=== PATIENT | male | born 1935 | race Caucasian/White ===

== ENCOUNTER 2019-10-12 14:43 | Inpatient (IN) | payer OTHER ==
[~2019-10-12] VITALS: Ht 172.7 cm; Wt 89.7 kg
[~2019-10-12 14:43] MED LIST: DIGO1TAB35 PO; LEVO100T8 PO; LOSA25TA38 PO; METO-158 PO; MEX150C PO; MULT-688 PO; PRAV20TA3 PO; SPIR25TA8 PO; WARF5TAB71 PO
[2019-10-12] MEDS ORDERED: SODIUM CHLORIDE 0.9% 1,000 ML IV ONE ×2 (15:01)
[2019-10-12] MEDS ORDERED: cefTRIAXone 1GM/50ML D5W 50 ML IV ONE (15:15)
[2019-10-12 15:30] LABS: Basophils # (auto) 0 10 ^3/uL (0-0.2); Basophils % (auto) 0.2 % (0.0-2.0); Eosinophils # (auto) 0 10 ^3/uL (0-0.8); Hematocrit 38.3 % (41.0-53.0); Hemoglobin 12.7 g/dL (13.5-17.5); Lymphocytes # (auto) 0.3 10 ^3/uL (0.4-5.4); Lymphocytes % (auto) 3.6 % (10.0-50.0); Mean Corpuscular Hemoglobin 30.1 pg (28.0-32.0); Mean Corpuscular Hgb Conc. 33.3 g/dL (32.0-36.0); Mean Corpuscular Volume 90.4 fL (80.0-100.0); Monocytes # (auto) 0.5 10 ^3/uL (0-1.3); Monocytes % (auto) 6.5 % (0.0-12.0); Neutrophils # (auto) 7.5 10 ^3/uL (1.6-8.6); Neutrophils % (auto) 89.7 % (37.0-80.0); Platelet Count (auto) 210 10^3/uL (140-450); Red Blood Cells 4.24 10^6/uL (4.5-5.90); Red Cell Distribution Width 14.9 % (11.8-14.3); White Blood Cell 8.4 10^3/uL (4.4-10.8)
[2019-10-12 15:45] LABS: INR 1.98 (0.9-1.15); Partial Thromboplastin Time 30.5 sec (23.64-32.05)
[2019-10-12 15:48] LABS: Albumin 2.6 g/dL (3.4-5.0); Anion Gap 8 (5-15); BUN/Creatinine Ratio 22.3; Blood Urea Nitrogen 31 mg/dL (7-18); Calcium 7.9 mg/dL (8.5-10.1); Carbon Dioxide 22 mmol/L (21-32); Chloride 99 mmol/L (98-107); GFR African American 63 mL/min; GFR Non-African American 52 mL/min; Glucose 95 mg/dL (74-106); Potassium 4.7 mmol/L (3.5-5.1); Sodium 129 mmol/L (136-145)
[2019-10-12 16:06] LABS: Alanine Aminotransferase 20 U/L (16-61); Alkaline Phosphatase 94 U/L (45-117); Aspartate Aminotransferase 22 U/L (15-37); Bilirubin, Total 0.8 mg/dL (0.2-1.0); Total Protein 6.8 g/dL (6.4-8.2)
[2019-10-12] MEDS ORDERED: NOREPINEPHRINE 8 MG/250ML KIT 250 ML IV SCH (16:45)
[2019-10-12] MEDS ORDERED: FUROSEMIDE 20 MG/2 ML VIAL IV ONE (16:45)
[2019-10-12] MEDS ORDERED: NITROGLYCERIN 0.4 MG SL TAB SL PRN (19:45)
[2019-10-12] MEDS ORDERED: MORPHINE SULF INJ 2 MG/ML SYRINGE 1ML IV PRN (19:45)
[2019-10-12] MEDS ORDERED: LACTATED RINGER'S 1,000 ML IV ONE (20:00)
[2019-10-12] MEDS ORDERED: HYDROCORTISONE SOD SUCC 100 MG/2ML INJ VIAL IV ONE (20:00)
[2019-10-12 20:04] LABS: Urine Bacteria MANY /hpf (None Seen); Urine Blood 1+ /uL (Negative); Urine Mucus MANY (None Seen); Urine WBC 160 /hpf (0 - 3)
[2019-10-12 20:05] LABS: Urine Specific Gravity 1.013 (1.001-1.035)
--- NOTE | 2019-10-12 22:27 | NUR ---
Telemetry admit from ER ELLY GARCIA admitted to Telemetry unit after SBAR received. Patient oriented to DEANNE SMITH RN primary RN, MST unit, room 275, bed B, and unit policies regarding patient care and visiting hours. Patient now on continuous telemetry monitoring, tele box #[id number] and telemetry reading on arrival to unit is sinus rhythm in the 70s. Patient placed on bedside oxygen, weighed by bed scale and encouraged to call if they need something. All questions and concerns addressed, patient verbalized understanding. Note: Patient able to turn in bed independent, bed in lowest locked position, side rails up x2, and call light within reach.
--- NOTE | 2019-10-12 22:32 | NUR ---
RUN OF VTACH WHILE TRANSFERRING PATIENT FROM ER [facility] TO BED, RECEIVED CALL FROM DIAZO TECHNICIAN STATING PATIENT HAD A RUN OF V TACH. ASSOCIATE DIRECTOR OF BIOSTATISTICS STATED HE WAS HAVING THEM DOWNSTAIRS, AWARE, AND ASYMPTOMATIC.
--- NOTE | 2019-10-13 | NUR ---
Medication Reconcile UNABLE TO OBTAIN FULL MED REC FROM PATIENT, PATIENT IS NOT SURE WHICH MEDICATIONS HE IS ON OTHER THAN WARFARIN. PATIENT SAID HE WILL CALL CAREGIVER AND GET MEDICATION LIST FROM HER.
[2019-10-13 01:30] VITALS: BP 119/51
[2019-10-13 05:58] LABS: Basophils # (auto) 0 10 ^3/uL (0-0.2); Basophils % (auto) 0.3 % (0.0-2.0); Eosinophils # (auto) 0 10 ^3/uL (0-0.8); Hematocrit 36.8 % (41.0-53.0); Hemoglobin 12.4 g/dL (13.5-17.5); Lymphocytes # (auto) 0.3 10 ^3/uL (0.4-5.4); Lymphocytes % (auto) 3.9 % (10.0-50.0); Mean Corpuscular Hemoglobin 30.3 pg (28.0-32.0); Mean Corpuscular Hgb Conc. 33.7 g/dL (32.0-36.0); Monocytes # (auto) 0.3 10 ^3/uL (0-1.3); Monocytes % (auto) 3.5 % (0.0-12.0); Neutrophils # (auto) 7.8 10 ^3/uL (1.6-8.6); Neutrophils % (auto) 92.3 % (37.0-80.0); Nucleated Red Blood Cells % 0.1 %; Platelet Count (auto) 198 10^3/uL (140-450); Red Blood Cells 4.08 10^6/uL (4.5-5.90); Red Cell Distribution Width 15.1 % (11.8-14.3); White Blood Cell 8.5 10^3/uL (4.4-10.8)
[2019-10-13 06:00] VITALS: BP 98/35
[2019-10-13 06:17] LABS: Albumin 2.3 g/dL (3.4-5.0); Magnesium 1.8 mg/dL (1.6-2.6); Potassium 3.9 mmol/L (3.5-5.1)
[2019-10-13 06:22] LABS: BUN/Creatinine Ratio 32.3; Bilirubin, Total 0.4 mg/dL (0.2-1.0); Phosphorus 3.4 mg/dL (2.5-4.90); Total Protein 5.9 g/dL (6.4-8.2)
[2019-10-13 06:25] LABS: INR 2.22 (0.9-1.15); Partial Thromboplastin Time 34.2 sec (23.64-32.05)
[2019-10-13 09:00] VITALS: BP 103/49
[2019-10-13] MEDS ORDERED: SODIUM CHLORIDE 0.9% 500 ML IV ONE (10:45)
[2019-10-13] MEDS: D5W/LACTATED RINGERS 1,000 ML IV SCH (10:45)
[2019-10-13] MEDS ORDERED: LEVOTHYROXINE SODIUM 100 MCG TAB PO ONE (11:00)
[2019-10-13] MEDS ORDERED: MEXILETINE HYDROCHLORIDE 150 MG CAP PO ONE (11:00)
[2019-10-13] MEDS ORDERED: DIGOXIN 0.125 MG TAB PO ONE (11:00)
[2019-10-13 13:00] VITALS: BP 114/57
[2019-10-13] MEDS ORDERED: TPN PER PHARMACY 0 ML IV SCH (14:00)
[2019-10-13] MEDS ORDERED: IOTHALAMATE MEGLUMINE INJ 250ML BOT UR ONE (14:20)
[2019-10-13 16:46] VITALS: BP 125/63
[2019-10-13] MEDS: PIPERACILLIN-TAZOB 3.375GM 100 ML IV SCH (18:00)
[2019-10-13] MEDS ORDERED: CLINIMIX PER PHARMACY IV NR (20:00)
--- NOTE | 2019-10-13 20:00 | NUR ---
Opening Shift Note Assumed care of patient, awake and alert. No S/S of distress/SOB or pain. Instructed on POC and to call for assist PRN, will continue to monitor for changes Q1hr and PRN.
--- NOTE | 2019-10-13 20:30 | NUR ---
IV insertion IV access obtained, via clean sterile technique by inserting 22 gauge catheter at after attempt by Kaylie Trent. IV secured properly. No trauma to site. Patient tolerated well.
[2019-10-13] MEDS: PRAVASTATIN SODIUM 20 MG TAB PO SCH (21:21)
[2019-10-13] MEDS: MEXILETINE HYDROCHLORIDE 150 MG CAP PO SCH (21:40)
[2019-10-13 22:00] VITALS: BP 133/71
[2019-10-13] MEDS: METOPROLOL TARTRATE 50 MG TAB PO SCH (22:12)
[2019-10-14] MEDS: PIPERACILLIN-TAZOB 3.375GM 100 ML IV SCH ×5 (01:31→23:49)
--- NOTE | 2019-10-14 02:00 | NUR ---
Assumed care of patient. Patient resting with eyes closed, respirations even and unlabored, no s/s of SOB or distress. Bed in lowest locked position with two side rails raised and call wong within reach. Will continue to monitor
--- NOTE | 2019-10-14 02:00 | NUR ---
Report given to Paul Epstein, to assume care.
--- NOTE | 2019-10-14 03:20 | NUR ---
Patient had a run of V-tach with HR sustained in 150's. Patient is asymptomatic. EKG done and paged. Awaiting call back.
--- NOTE | 2019-10-14 03:35 | NUR ---
MD. Elsy Glover called back, informed Md of runs of V-Tach and current HR 120. New orders received, see EMAR for details. Will note new orders.
[2019-10-14] MEDS ORDERED: METOPROLOL TARTRATE 1MG/1ML-5ML VIAL IV PRN ×2 (03:45→04:00)
[2019-10-14] MEDS: MAGNESIUM SULFATE 1GM/100ML 100 ML IV SCH ×2 (04:00→05:27)
[2019-10-14 05:00] VITALS: BP 132/78
[2019-10-14 06:12] LABS: Basophils # (auto) 0 10 ^3/uL (0-0.2); Basophils % (auto) 0.1 % (0.0-2.0); Eosinophils # (auto) 0 10 ^3/uL (0-0.8); Hemoglobin 13.2 g/dL (13.5-17.5); Lymphocytes # (auto) 0.2 10 ^3/uL (0.4-5.4); Lymphocytes % (auto) 1.6 % (10.0-50.0); Mean Corpuscular Hemoglobin 30.2 pg (28.0-32.0); Mean Corpuscular Volume 88.8 fL (80.0-100.0); Monocytes # (auto) 0.5 10 ^3/uL (0-1.3); Monocytes % (auto) 3.9 % (0.0-12.0); Neutrophils # (auto) 11.2 10 ^3/uL (1.6-8.6); Neutrophils % (auto) 94.4 % (37.0-80.0); Platelet Count (auto) 218 10^3/uL (140-450); Red Blood Cells 4.39 10^6/uL (4.5-5.90); Red Cell Distribution Width 14.8 % (11.8-14.3); White Blood Cell 11.8 10^3/uL (4.4-10.8)
[2019-10-14 06:28] LABS: INR 2.84 (0.9-1.15); Partial Thromboplastin Time 36.2 sec (23.64-32.05)
[2019-10-14 06:35] LABS: Potassium 3.7 mmol/L (3.5-5.1)
[2019-10-14 06:37] LABS: Pre Albumin 9.4 mg/dL (20.0-40.0)
[2019-10-14] MEDS: LEVOTHYROXINE SODIUM 100 MCG TAB PO SCH (06:39)
[2019-10-14 06:45] LABS: Albumin 2.3 g/dL (3.4-5.0); BUN/Creatinine Ratio 33.3; Bilirubin, Total 0.5 mg/dL (0.2-1.0); Total Protein 6.1 g/dL (6.4-8.2)
--- NOTE | 2019-10-14 06:45 | NUR ---
Patient states he is "seeing things" and flashes of light sometimes. Will endorse to dayschristophe RN.
--- NOTE | 2019-10-14 08:30 | NUR ---
INTERROGATION MEMBER AT BEDSIDE.
[2019-10-14] MEDS ORDERED: PHYTONADIONE (VIT K)10 MG/ML 1ML VIAL SUBCUT ONE (08:45)
--- NOTE | 2019-10-14 08:51 | NUR ---
[facility] MEYER CARDIOLOGY REGARDING PATIENTS RUNS OF VTACH AND COMPLAINTS OF VISUAL DISTURBANCES.
[2019-10-14 09:00] VITALS: BP 105/45
[2019-10-14] MEDS: MEXILETINE HYDROCHLORIDE 150 MG CAP PO SCH ×2 (09:37→22:25)
[2019-10-14] MEDS: METOPROLOL TARTRATE 50 MG TAB PO SCH ×2 (09:38→22:00)
[2019-10-14] MEDS ORDERED: DIGOXIN 0.125 MG TAB PO SCH (10:00)
[2019-10-14] MEDS ORDERED: phytonadione 10 MG in SODIUM CHL 0.9% 50 ML IV ONE (10:15)
[2019-10-14] MEDS: D5W/LACTATED RINGERS 1,000 ML IV SCH ×2 (10:37→23:28)
[2019-10-14 13:00] VITALS: BP 90/44
[2019-10-14] MEDS ORDERED: SODIUM PHOSPHATES 24 MEQ in SODIUM CHL 0.9% 100 ML IV ONE (14:00)
--- NOTE | 2019-10-14 14:08 | NUR ---
Nutrition Assessment Notes (new PN) please see attached link for complete assessment Est. Energy Needs BW 76 [id number] kcal (23-25 kcal/kg BW), Est. Protein Needs: 76-91 gms/day (1.0-1.2 gms/kg BW).Will continue to monitor and reassess prn. Addendum: 10/14/19 at [address] Amended: Links added.
--- NOTE | 2019-10-14 14:42 | NUR ---
KWASI ANNE REGARDING PATIENT REPORTS OF 'BLACK AND WHITE PICTURES. AWAITING CALL BACK.
--- NOTE | 2019-10-14 14:47 | NUR ---
SPOKE WITH DAYANA. RECEIVED ORDER FOR BRAIN MRI WITHOUT CONTRAST. IF AICD IS NOT COMPATIBLE PLEASE ORDER CT OF HEAD WITHOUT CONTRAST.
--- NOTE | 2019-10-14 16:16 | NUR ---
PATIENT REFUSING CT OF THE HEAD. STATES HE IS NO LONGER HALLUCINATING.
[2019-10-14 16:58] VITALS: BP 93/46
[2019-10-14] MEDS: AMIODARONE HCL 200 MG TAB PO SCH ×2 (17:00→22:25)
[2019-10-14] MEDS: ACCU-CHEK COMFORT CURVE STRIP VI SCH (18:00)
[2019-10-14] MEDS ORDERED: DEXTROSE (50%) 50ML SYRG IV SCH (18:00)
[2019-10-14] MEDS: InsuLIN REG 1unit/0.01ml Soln (100units/ml) SC SCH (18:00)
--- NOTE | 2019-10-14 18:02 | NUR ---
PAGED DIRECTOR OPERATING ROOM HOSPITALIST REGARDING PATIENTS BLOOD PRESSURE OF 88/40MMG. HEART RATE OF 60BPM. PATIENT STATES "I FEEL FINE, IM JUST TIRED, BUT I FELT LIKE THIS SINCE MORNING TIME."
--- NOTE | 2019-10-14 18:20 | NUR ---
SPOKE TO Thaddeus RAMIREZ. PER Thaddeus HE DOES NOT COVER FOR Thaddeus ANNE PATIENTS. PAGED Thaddeus ANNE. AWAITING CALL BACK.
--- NOTE | 2019-10-14 18:39 | NUR ---
SPOKE TO Thaddeus ANNE REGARDING PATIENTS BLOOD PRESSURE. INFORMED TO JUST CONTINUE FLUIDS. WILL FOLLOW THROUGH.
--- NOTE | 2019-10-14 19:44 | NUR ---
ENDORSED CARE TO RONNY NIETO. INFORMED OF PATIENT HOME NEBULIZER THAT WERE JUST BROUGHT IN.
[2019-10-14] MEDS ORDERED: PPN PER PHARMACY IV NR ×11 (20:00)
[2019-10-14] MEDS ORDERED: ALBU2TAB4 PO (21:43)
[2019-10-14] MEDS ORDERED: ALBU108A14 IN (21:43)
[2019-10-14] MEDS ORDERED: IPRAAER6 IN (21:43)
[2019-10-14 22:00] VITALS: BP 90/42
--- NOTE | 2019-10-14 22:00 | NUR ---
bg hospitalist to notify of patient requesting home breathing treatments, and inhalers. awaiting call back from hospitalist. Addendum: 10/14/19 at 2208 by Job Carlos RN bg ellis Addendum: 10/15/19 at 0550 by Job Carlos RN CLARIFIED BP MEDS, AND MD ANNE SAID ITS OK TO GIVE MEDICATIONS AND ORDERED HOME MEDICATIONS. READ BACK AND CONFIRMED.
[2019-10-14] MEDS: PRAVASTATIN SODIUM 20 MG TAB PO SCH (22:46)
[2019-10-14 23:07] VITALS: BP 90/42
[2019-10-15] MEDS: ACCU-CHEK COMFORT CURVE STRIP VI SCH ×5 (00:01→23:31)
--- NOTE | 2019-10-15 00:17 | NUR ---
PAGED DR ANNE TO NOTIFY OF PATIENT HAVING RUN OF VTAC, EKG RESULTS AND TELE STRIP RESULTS. AWAITING CALL BACK. PATIENT IS ASYMPTOMATIC.
--- NOTE | 2019-10-15 00:24 | NUR ---
2ND PAGED DR ANNE TO NOTIFY OF PATIENT HAVING RUN OF VTAC, EKG RESULTS AND TELE STRIP RESULTS. AWAITING CALL BACK. PATIENT IS ASYMPTOMATIC.
[2019-10-15] MEDS: ALBUTEROL SULF 2.5 MG/0.5ML(0.5%) NEB SOLN NEB PRN ×4 (00:25→23:03)
--- NOTE | 2019-10-15 00:43 | NUR ---
3RD PAGED DR ANNE TO NOTIFY OF PATIENT HAVING RUN OF VTAC, EKG RESULTS AND TELE STRIP RESULTS. AWAITING CALL BACK. PATIENT IS ASYMPTOMATIC.
--- NOTE | 2019-10-15 01:37 | NUR ---
4TH PAGED TO NOTIFY OF PATIENT HAVING ANOTHER RUN OF VTAC 8 BEATS, PATIENT ASYMPTOMATIC, PREVIOUS VTAC, VITALS, EKG, PRINTOUT OF TELE. AWAITING CALL BACK. Addendum: 10/15/19 at 0143 by Job Carlos RN TELE HOSTEL PARENT PAOLA, NOTIFIED ME PATIENT DID NOT HAVE TRUE VTAC AND IT WAS A BUNDLE SWITCH. AWAITING CALL BACK.
--- NOTE | 2019-10-15 02:45 | NUR ---
SPOKE TO MD ANNE, AND NOTIFIED HIM OF LOW BP 88/49. VTAC, VITALS, EKG. MD ANNE PROVIDED NEW ORDER OF: BOLUS 250 ONE TIME DOSE NOW. READ BACK AND CONFIRMED. NO NEW ORDER GIVEN FOR VTAC. Addendum: 10/15/19 at 0254 by Job Carlos RN MD ANNE PROVIDED ORDER FOR MAG LEVEL LAB DRAW AND BMP LAB DRAW. ORDERS AREADY IN. Addendum: 10/15/19 at 0257 by Job Carlos RN AWARE OF 18 BEATS OF VTAC AND EPISODE OF VTAC.
[2019-10-15] MEDS ORDERED: SODIUM CHLORIDE 0.9% 250 ML IV ONE (03:00)
[2019-10-15] MEDS ORDERED: SODIUM CHLORIDE 0.9% 1,000 ML IV ONE (03:00)
[2019-10-15 05:00] VITALS: BP 97/63
[2019-10-15] MEDS: InsuLIN REG 1unit/0.01ml Soln (100units/ml) SC SCH ×6 (05:37→23:34)
--- NOTE | 2019-10-15 05:49 | NUR ---
CLARIFIED BP MEDS, AND MD ANNE SAID ITS OK TO GIVE MEDICATIONS AND ORDERED HOME MEDICATIONS. READ BACK AND CONFIRMED.
--- NOTE | 2019-10-15 05:50 | NUR ---
SPOKE TO MD LR TO CLARIFY IF ITS OK TO GIVE MEDICATIONS SINCE PT IS NPO. MD LR PROVIDED NEW ORDER OF : NPO EXCEPT MEDICATIONS. READ BACK AND CONFIRMED.
[2019-10-15] MEDS: PIPERACILLIN-TAZOB 3.375GM 100 ML IV SCH ×4 (05:53→23:31)
[2019-10-15] MEDS ORDERED: COMBIVENT RESPIMAT PO SCH ×2 (06:00→12:00)
[2019-10-15] MEDS: LEVOTHYROXINE SODIUM 100 MCG TAB PO SCH (06:04)
[2019-10-15 06:26] LABS: INR 1.13 (0.9-1.15); Partial Thromboplastin Time 30.5 sec (23.64-32.05); Potassium 3.2 mmol/L (3.5-5.1)
[2019-10-15 06:32] LABS: Albumin 1.8 g/dL (3.4-5.0); BUN/Creatinine Ratio 31.4; Bilirubin, Total 0.5 mg/dL (0.2-1.0); Calcium 7.6 mg/dL (8.5-10.1); Magnesium 2.2 mg/dL (1.6-2.6); Phosphorus 2.2 mg/dL (2.5-4.90); Total Protein 5.4 g/dL (6.4-8.2)
--- NOTE | 2019-10-15 07:30 | NUR ---
Opening Shift Note Assumed care of patient, awake and alert. No S/S of distress/SOB or pain. Bed in lowest and locked position with side rails up x2 and call light in reach. Instructed on POC and to call for assist PRN, will continue to monitor for changes Q1hr and PRN.
[2019-10-15 09:00] VITALS: BP 93/45
[2019-10-15] MEDS: METOPROLOL TARTRATE 50 MG TAB PO SCH ×2 (10:00→21:35)
--- NOTE | 2019-10-15 12:00 | NUR ---
RN UPDATED DR. MEYER ON THE PATIENTS HEART RHYTHM. MD AWARE AND NO NEW ORDERS RECEIVED AT THIS TIME.
--- NOTE | 2019-10-15 12:50 | NUR ---
SPOKE TO DR. MEYER NEW ORDERS RECEIVED, READ BACK AND VERIFIED. SEE EMR FOR ORDERS.
[2019-10-15 13:00] VITALS: BP 97/46
[2019-10-15] MEDS ORDERED: POTASSIUM PHOSPHATE 22 MEQ in SODIUM CHL 0.9% 100 ML IV ONE (13:00)
[2019-10-15] MEDS: D5W/LACTATED RINGERS 1,000 ML IV SCH ×2 (13:15→15:51)
--- NOTE | 2019-10-15 13:20 | NUR ---
SPOKE TO DR. ANNE. RN UPDATED DR. ANNE ON THE PATIENTS HEART RHYTHMS AND BLOOD PRESSURE. MD AWARE. ORDERS RECEIVED READ BACK AND VERIFIED. SEE EMR FOR ORDERS.
[2019-10-15] MEDS: AMIODARONE HCL 200 MG TAB PO SCH ×2 (13:27→21:34)
[2019-10-15] MEDS ORDERED: COMBIVENT RESPIMAT PO PRN (14:00)
--- NOTE | 2019-10-15 15:11 | NUR ---
PICC line placement Patient educated on need for PICC line placement. All risks and benefits explained and all questions and concerns addressed prior to procedure. Noted past medical history and allergies with no contraindications. INR and Plt counts within acceptable range. 5 fr PICC line inserted via right basilic vein using [employer] US and Tip Location System. Sterile technique with maximum barrier precautions utilized. Blood return obtained from each of the 2 lumens and each flushed easily with NS using proper technique. PICC secured with Stat-lock; biodisc and occlusive dressing applied. Stat portable chest x-ray obtained for PICC tip placement. *Baseline Arm Circumference 29 cm. Internal length 42 cm. External length 0 cm. PICC lot #[id number]
[2019-10-15] MEDS ORDERED: LIDOCAINE 1% (LOCAL ANESTH.) PF 5ml SDV ID ONE (15:15)
--- NOTE | 2019-10-15 15:17 | NUR ---
Okay to use PICC line Xray completed and reviewed. Okay to use PICC line. Primary RN notified.
[2019-10-15] MEDS: COMBIVENT RESPIMAT PO PRN (15:52)
--- NOTE | 2019-10-15 16:00 | NUR ---
IV removal RIGHT HAND IV DC'd with clean sterile technique, catheter fully intact. Pressure dressing applied to site. Patient tolerated well.
[2019-10-15 17:00] VITALS: BP 94/51
--- NOTE | 2019-10-15 18:00 | NUR ---
PAGED DR. ANNE REGARDING PATIENT NAUSEA. AWAITING CALL BACK.
[2019-10-15] MEDS ORDERED: PPN PER PHARMACY IV NR ×11 (20:00)
--- NOTE | 2019-10-15 21:13 | NUR ---
HEART RHYTHM MEDART OPERATOR CALLED, REPORTED THAT PATIENT HAD RUN OF VTACH. UPON ENTERING ROOM, PATIENT IS IN NO S/S OF DISTRESS AND DENIES ABNORMAL SYMPTOMS. MD IS AWARE OF SUCH OCCURRENCE. SEE TELE STRIP IN CHART. WILL CONTINUE TO MONITOR.
[2019-10-15] MEDS: SODIUM CHLOR 0.9% PF (SALINE LOCK) 10ML VIAL/SYR IV SCH (21:30)
[2019-10-15] MEDS: PRAVASTATIN SODIUM 20 MG TAB PO SCH (21:34)
[2019-10-15 22:00] VITALS: BP 104/54
--- NOTE | 2019-10-16 00:10 | NUR ---
K+ K+ level from laboratory has resulted at this time. Per MD communication order (see order), will give PO K+. Will carry out order. Will continue to monitor.
[2019-10-16] MEDS ORDERED: POTASSIUM CHL 20 Meq TABLET PO ONE ×2 (00:30→18:00)
[2019-10-16] MEDS: COMBIVENT RESPIMAT PO PRN ×2 (03:57→22:39)
--- NOTE | 2019-10-16 03:58 | NUR ---
PAGED FOR MED NEB TX. PT STATED HE WANTED TO USE MDI THAT RN HAS ACCESS TO NOT NEBULIZED TX. CALLED RN, SHE CLAIMS "PT NEEDED NEBULIZER TX BEFORE MDI, EXPLAINED TO RN PT CAN NOT HAVE BOTH, MDI AND NEBULIZED TX AND PT REQUESTED MDI. RN GOING TO ADMINISTER MDI.
--- NOTE | 2019-10-16 04:00 | NUR ---
RE: PRN SOB SEE PREVIOUS RT NOTE. THIS RN DID NOT CLAIM SUCH STATEMENT. THIS RN IS AWARE OF PROPER MEDICATION ADMINISTRATION AND DID NOT INFER THAT PATIENT WOULD RECEIVE DUPLICATE TREATMENT. COMMUNICATION CLARIFIED, RT VERBALIZED UNDERSTANDING. PATIENT REQUESTS HIS POM INHALER. PER MD ORDER, WILL ADMINISTER MEDICATION (SEE EMAR FOR DOCUMENTATION). WILL CONTINUE TO MONITOR.
[2019-10-16 05:00] VITALS: BP 106/52
[2019-10-16] MEDS: PIPERACILLIN-TAZOB 3.375GM 100 ML IV SCH ×4 (05:29→23:46)
[2019-10-16] MEDS: ACCU-CHEK COMFORT CURVE STRIP VI SCH ×4 (05:29→23:46)
[2019-10-16] MEDS: InsuLIN REG 1unit/0.01ml Soln (100units/ml) SC SCH ×4 (05:30→23:46)
[2019-10-16 05:41] LABS: Basophils # (auto) 0 10 ^3/uL (0-0.2); Basophils % (auto) 0.1 % (0.0-2.0); Eosinophils # (auto) 0 10 ^3/uL (0-0.8); Eosinophils % (auto) 0.2 % (0.0-7.0); Hematocrit 31.7 % (41.0-53.0); Hemoglobin 10.9 g/dL (13.5-17.5); Lymphocytes # (auto) 0.3 10 ^3/uL (0.4-5.4); Lymphocytes % (auto) 3.7 % (10.0-50.0); Mean Corpuscular Hemoglobin 30.5 pg (28.0-32.0); Mean Corpuscular Hgb Conc. 34.5 g/dL (32.0-36.0); Mean Corpuscular Volume 88.4 fL (80.0-100.0); Monocytes # (auto) 0.8 10 ^3/uL (0-1.3); Monocytes % (auto) 10.7 % (0.0-12.0); Neutrophils # (auto) 6.4 10 ^3/uL (1.6-8.6); Neutrophils % (auto) 85.3 % (37.0-80.0); Platelet Count (auto) 205 10^3/uL (140-450); Red Blood Cells 3.59 10^6/uL (4.5-5.90); Red Cell Distribution Width 14.6 % (11.8-14.3); White Blood Cell 7.5 10^3/uL (4.4-10.8)
[2019-10-16 06:10] LABS: Albumin 1.6 g/dL (3.4-5.0); Calcium 7.3 mg/dL (8.5-10.1); Magnesium 1.9 mg/dL (1.6-2.6); Potassium 3.2 mmol/L (3.5-5.1)
[2019-10-16] MEDS: LEVOTHYROXINE SODIUM 100 MCG TAB PO SCH (06:10)
[2019-10-16 06:15] LABS: BUN/Creatinine Ratio 32.2; Bilirubin, Total 0.4 mg/dL (0.2-1.0); Total Protein 5.4 g/dL (6.4-8.2)
--- NOTE | 2019-10-16 06:20 | NUR ---
RE: COUGH AND HOME MED PATIENT OFFERED MEDICATION FOR HIS COUGH. PATIENT STATES HE DOES NOT WANT ANYTHING. PATIENT STATES HE HAS COPD AND HEART FAILURE AND TAKES A CERTAIN HELPFUL MEDICATION AT HOME FOR HIS COUGH WHICH IS NOT RECOGNIZED IN MED REC. INFORMED PATIENT TO NOTIFY FAMILY MEMBER TO NOTIFY OUR STAFF WHEN INFORMATION IS KNOWN. PATIENT AND DAUGHTER VERBALIZED UNDERSTANDING. WILL NOTIFY DAY SHIFT RN.
--- NOTE | 2019-10-16 07:35 | NUR ---
Opening Shift Note: Assumed care of patient, awake and alert. No S/S of distress/SOB or pain. Bed in lowest locked position, side rails up x 2, call light within reach. Patient instructed on POC and to call for assist PRN, will continue to monitor for changes Q1hr and PRN.
[2019-10-16 09:00] VITALS: BP 115/69
[2019-10-16] MEDS: D5W/LACTATED RINGERS 1,000 ML IV SCH (09:45)
[2019-10-16] MEDS ORDERED: POTASSIUM PHOSPHATE 22 MEQ in SODIUM CHL 0.9% 100 ML IV ONE (09:45)
[2019-10-16] MEDS: SODIUM CHLOR 0.9% PF (SALINE LOCK) 10ML VIAL/SYR IV SCH ×2 (10:28→21:40)
[2019-10-16] MEDS: METOPROLOL TARTRATE 50 MG TAB PO SCH ×2 (10:29→21:42)
[2019-10-16] MEDS: AMIODARONE HCL 200 MG TAB PO SCH ×2 (10:29→21:42)
--- NOTE | 2019-10-16 10:52 | NUR ---
Respiratory note: PT ASSESSED FOR PRN MED NEB TX, NO TX DESIRED NOR INDICATED AT THIS TIME. PT IS SLEEPING AND STATES HE HASN'T SLEPT IN DAYS. PT AND RN AWARE TO HAVE RT PAGED IF NEEDED. HR 60 RR 16 SPO2 98% ON 2L N/C BREATH SOUNDS ARE DIMINISHED WITH FEW SCATTERED EXPIATORY CRACKLES.
--- NOTE | 2019-10-16 11:27 | NUR ---
1200 antibiotic held. No available IV line, as both forearm IVs infiltrated, and picc line is currently running PPN and potassium Patient refused new IV start at this time. Patient educated on need for new line, patient continued to refused.
--- NOTE | 2019-10-16 11:45 | NUR ---
Both right forearm IVs DC'd due to infiltration. Catheter intact. pressure dressing applied.
[2019-10-16 13:00] VITALS: BP 122/58
--- NOTE | 2019-10-16 16:00 | NUR ---
PT declined PT and would like to have evaluation done tomorrow. Will attempt again.
[2019-10-16 17:00] VITALS: BP 106/58
[2019-10-16] MEDS: ALBUTEROL SULF 2.5 MG/0.5ML(0.5%) NEB SOLN NEB PRN (18:16)
--- NOTE | 2019-10-16 18:49 | NUR ---
CLOSING NOTE: Patient resting in bed. No S/S of distress at this time. Care endorsed to NOC RN.
[2019-10-16] MEDS: TPN PER PHARMACY IV NR ×10 (19:40)
--- NOTE | 2019-10-16 21:40 | NUR ---
RE: COUGH; PAGED DR. ANNE PATIENT C/O COUGH AND WOULD LIKE TO CONTINUE HIS HOME MEDICATION BENZONATATE 100MG PO BID. PAGED DR. ANNE. AWAITING CALL BACK. WILL CONTINUE TO MONITOR.
[2019-10-16] MEDS: PRAVASTATIN SODIUM 20 MG TAB PO SCH (21:43)
[2019-10-16] MEDS ORDERED: BENZ100C97 PO (21:53)
[2019-10-16 22:51] VITALS: BP 117/51
[2019-10-17] MEDS ORDERED: IBUPROFEN 600 MG TAB PO PRN (02:30)
[2019-10-17] MEDS: ALBUTEROL SULF 2.5 MG/0.5ML(0.5%) NEB SOLN NEB PRN ×3 (03:45→19:00)
[2019-10-17 05:00] VITALS: BP 121/62
--- NOTE | 2019-10-17 05:10 | NUR ---
BLOOD SENT TO LAB
[2019-10-17] MEDS: PIPERACILLIN-TAZOB 3.375GM 100 ML IV SCH ×3 (05:12→18:44)
[2019-10-17] MEDS: InsuLIN REG 1unit/0.01ml Soln (100units/ml) SC SCH ×3 (05:12→18:00)
[2019-10-17] MEDS: ACCU-CHEK COMFORT CURVE STRIP VI SCH ×3 (05:12→18:00)
[2019-10-17] MEDS: D5W/LACTATED RINGERS 1,000 ML IV SCH (05:13)
[2019-10-17 05:41] LABS: Albumin 1.7 g/dL (3.4-5.0); Calcium 7.3 mg/dL (8.5-10.1); Magnesium 1.9 mg/dL (1.6-2.6); Potassium 3.6 mmol/L (3.5-5.1)
[2019-10-17 05:44] LABS: BUN/Creatinine Ratio 35.9; Bilirubin, Total 0.3 mg/dL (0.2-1.0); Phosphorus 2.6 mg/dL (2.5-4.90); Total Protein 5.4 g/dL (6.4-8.2)
[2019-10-17] MEDS: LEVOTHYROXINE SODIUM 100 MCG TAB PO SCH (06:29)
--- NOTE | 2019-10-17 06:30 | NUR ---
SOILED PATIENT HAD EPISODE OF BOWEL INCONTINENCE. PATIENT DONN CARE PERFORMED, TOLERATED WELL. PARTIAL LINEN CHANGE PERFORMED. BARRIER CREAM APPLIED. WILL CONTINUE TO MONITOR.
--- NOTE | 2019-10-17 07:37 | NUR ---
RT note: PT awake and alert. No signs of sob/resp.distress noted at this time. PT on 2 l/m NC with sats=94%, HR74, RR=18. PT waiting to go to GI lab. No TX indicated at this time.
[2019-10-17 09:13] VITALS: BP 109/54
--- NOTE | 2019-10-17 09:57 | NUR ---
Nutrition Followup Notes Pt wt is 86.0 kg Pt is with a Clear Liquid diet, appetite is fair aeb 50% PO intake per RN doc. Pt is also with TPN running @ 65 ml/hr, providing 1470 kcals, 80g protein and 1150 NPCs. Pt with adequate energy intake from PN support as it meets 77% to 99% of est caloric needs. Protein intake from PN support is adequate as it meets 88% to 105% of est protein needs. Will continue to monitor PO status, skin status, pertinent labs and weight trends. Will f/u in 2-3 days. Est. Energy Needs BW 76 [id number] kcal (23-25 kcal/kg BW), Est. Protein Needs: 76-91 gms/day (1.0-1.2 gms/kg BW). Will continue to monitor and reassess prn. LABS: Gluc 112 H, Ca 7.3 L, Alb 1.7 L, BUN 28 H GI: Pt is with diarrhea and pain per RN doc. BS: 17 mod risk Refer to wound assessment report for full details. PES: Altered nutrition related lab values r.t current chronic medical condition aeb hypocalcemia, mod hypoalb Increased nutrient needs r.t current medical condition aeb pt`s NPO with PN support Comments 1) advance PN support to meet > 75% of needs 2) advance diet as medically feiasble 3) continue current plan of care
[2019-10-17] MEDS ORDERED: GOLYTELY 4L KIT PO ONE (10:00)
[2019-10-17] MEDS: AMIODARONE HCL 200 MG TAB PO SCH ×2 (10:09→22:07)
[2019-10-17] MEDS: SODIUM CHLOR 0.9% PF (SALINE LOCK) 10ML VIAL/SYR IV SCH ×2 (10:09→22:07)
[2019-10-17] MEDS: METOPROLOL TARTRATE 50 MG TAB PO SCH ×2 (10:09→22:07)
[2019-10-17] MEDS: COMBIVENT RESPIMAT PO PRN (10:28)
--- NOTE | 2019-10-17 11:00 | NUR ---
PT WAS GIVEN A LAXATIVE AND DOES NOT WANT TO ATTEMPT P.T. AT THIS TIME.
[2019-10-17 13:32] VITALS: BP 122/55
[2019-10-17] MEDS: BENZONATATE 100 MG PO PRN ×2 (13:56→22:07)
[2019-10-17] MEDS ORDERED: POTASSIUM CHL 20MEQ/100ML 100 ML IV ONE (16:30)
[2019-10-17 17:00] VITALS: BP 110/57
--- NOTE | 2019-10-17 18:50 | NUR ---
Respiratory paged for treatment.
--- NOTE | 2019-10-17 18:51 | NUR ---
CLOSING NOTE: Patient in bed. Paged respiratory for treatment. Care endorsed to NOC RN.
[2019-10-17 19:55] VITALS: BP 110/57
[2019-10-17] MEDS: TPN PER PHARMACY IV NR ×10 (19:57)
[2019-10-17] MEDS ORDERED: TPN PER PHARMACY IV NR ×10 (20:00)
--- NOTE | 2019-10-17 21:08 | NUR ---
Pt had large liquid green, brown BM. pericare performed, linens and gown changed. pt tolerated well. call light in reach.
[2019-10-17 21:11] VITALS: BP 110/57
[2019-10-17] MEDS: PRAVASTATIN SODIUM 20 MG TAB PO SCH (22:07)
[2019-10-18] MEDS: ACCU-CHEK COMFORT CURVE STRIP VI SCH ×4 (00:30→18:14)
[2019-10-18] MEDS: InsuLIN REG 1unit/0.01ml Soln (100units/ml) SC SCH ×4 (00:30→18:00)
[2019-10-18] MEDS: PIPERACILLIN-TAZOB 3.375GM 100 ML IV SCH ×4 (01:21→18:13)
[2019-10-18] MEDS: D5W/LACTATED RINGERS 1,000 ML IV SCH ×2 (02:21→22:33)
--- NOTE | 2019-10-18 02:58 | NUR ---
pt had large liquid green BM. jose care performed. pt tolerated well. call light in reach.
[2019-10-18] MEDS: COMBIVENT RESPIMAT PO PRN (04:08)
[2019-10-18] MEDS: ALBUTEROL SULF 2.5 MG/0.5ML(0.5%) NEB SOLN NEB PRN ×2 (04:13→15:39)
[2019-10-18 05:30] VITALS: BP 136/61
--- NOTE | 2019-10-18 06:59 | NUR ---
pt had large liquid green BM. jose care performed. pt tolerated well. call light in reach.
[2019-10-18] MEDS: LEVOTHYROXINE SODIUM 100 MCG TAB PO SCH (07:00)
--- NOTE | 2019-10-18 07:10 | NUR ---
Opening Shift Note: Assumed care of patient, awake and alert. No S/S of distress/SOB or pain. Bed in lowest locked position, side rails up x 2, call light within reach. Patient educated on NPO status. Patient instructed on POC and to call for assist PRN, will continue to monitor for changes Q1hr and PRN.
[2019-10-18] MEDS: BENZONATATE 100 MG PO PRN (08:53)
[2019-10-18 09:00] VITALS: BP 121/83
[2019-10-18 09:23] LABS: Albumin 1.7 g/dL (3.4-5.0); BUN/Creatinine Ratio 35.6; Bilirubin, Total 0.3 mg/dL (0.2-1.0); Calcium 7.5 mg/dL (8.5-10.1); Magnesium 2.1 mg/dL (1.6-2.6); Phosphorus 2.8 mg/dL (2.5-4.90); Total Protein 5.8 g/dL (6.4-8.2)
--- NOTE | 2019-10-18 09:59 | NUR ---
Paged Dr. Ramos regarding unfinished GoLytely. Awaiting call back.
[2019-10-18] MEDS: AMIODARONE HCL 200 MG TAB PO SCH ×2 (10:00→22:27)
[2019-10-18] MEDS: METOPROLOL TARTRATE 50 MG TAB PO SCH ×2 (10:00→22:28)
[2019-10-18] MEDS: SODIUM CHLOR 0.9% PF (SALINE LOCK) 10ML VIAL/SYR IV SCH ×2 (10:05→22:32)
--- NOTE | 2019-10-18 10:35 | NUR ---
Spoke with Dr. Ramos. New orders received. Read back and verified.
[2019-10-18] MEDS ORDERED: FLEET ENEMA(ADULT) 135 ML PR ONE (11:00)
--- NOTE | 2019-10-18 11:37 | NUR ---
Tap water enema given. Patient tolerated well. Will continue to monitor.
[2019-10-18 13:00] VITALS: BP 120/73
--- NOTE | 2019-10-18 13:45 | NUR ---
CONSENTS SIGNED AND PLACED IN THE CHART. ORDERED, SECOND TAP WATER ENEMA GIVEN. PATIENT TOLERATED WELL. WILL CONTINUE TO MONITOR.
--- NOTE | 2019-10-18 15:35 | NUR ---
SPOKE WITH FAMILY. PER DAUGHTER 'CAN HE GET SOME COMPRESSION SOCKS OR MEDICATION TO STOP BLOOD CLOTS." THIS NURSE PAGED DR. JJ. AWAITING CALL BACK.
--- NOTE | 2019-10-18 15:58 | NUR ---
Attempted PT eval. Pt refused stating he is "too weak." Pt was educated on purpose of physical therapy and importance of OOB activities. Pt verbalized understanding but continued to refused. Will make one more attempt tomorrow. If pt refuses PT eval tomorrow, he will be discharged from caseload for non-compliance.
[2019-10-18] MEDS ORDERED: fentaNYL CITRATE 100 MCG/2 ML VL ONE (16:39)
[2019-10-18] MEDS ORDERED: ONDANSETRON HCL 4 MG/2 ML VIAL ONE (16:39)
[2019-10-18] MEDS ORDERED: MIDAZOLAM HCL 1MG/1ML-2 ML VIAL ONE (16:39)
[2019-10-18] MEDS ORDERED: KETAMINE HCL 10 ML ONE (16:39)
[2019-10-18] MEDS ORDERED: SODIUM CHLORIDE LOCK 10 ML ONE (16:39)
[2019-10-18 17:00] VITALS: BP 126/76
--- NOTE | 2019-10-18 18:57 | NUR ---
CLOSING NOTE: Patient resting in bed. No S/S of distress at this time. Care endorsed to NOC RN.
--- NOTE | 2019-10-18 19:15 | NUR ---
Opening Shift Note: Assumed care of patient. Pt is awake, alert, and oriented X 4. No S/S of respiratory distress noted. No pain, nausea, or vomiting reported. Bed in lowest locked position, side rails up x 2, call light within reach. Salgado is patent and below the bladder level. Patient educated on NPO status. Patient instructed on POC and to call for assistance PRN. Will continue to monitor for changes Q1hr and PRN.
[2019-10-18 20:00] VITALS: BP 120/63
[2019-10-18] MEDS ORDERED: TPN PER PHARMACY IV NR ×10 (20:00)
[2019-10-18 22:00] VITALS: BP 120/63
[2019-10-18] MEDS: PRAVASTATIN SODIUM 20 MG TAB PO SCH (22:26)
[2019-10-19] MEDS: ACCU-CHEK COMFORT CURVE STRIP VI SCH ×4 (00:17→18:10)
[2019-10-19] MEDS: PIPERACILLIN-TAZOB 3.375GM 100 ML IV SCH ×4 (00:25→17:59)
[2019-10-19] MEDS: InsuLIN REG 1unit/0.01ml Soln (100units/ml) SC SCH ×4 (00:26→18:00)
[2019-10-19] MEDS: ALBUTEROL SULF 2.5 MG/0.5ML(0.5%) NEB SOLN NEB PRN (04:01)
[2019-10-19 05:00] VITALS: BP 93/52
[2019-10-19] MEDS: LEVOTHYROXINE SODIUM 100 MCG TAB PO SCH (06:40)
[2019-10-19] MEDS: BENZONATATE 100 MG PO PRN ×2 (06:40→22:47)
[2019-10-19 07:03] LABS: Potassium 3.8 mmol/L (3.5-5.1)
[2019-10-19 07:27] LABS: Albumin 1.5 g/dL (3.4-5.0); BUN/Creatinine Ratio 33.3; Bilirubin, Total 0.3 mg/dL (0.2-1.0); Calcium 7.4 mg/dL (8.5-10.1); Magnesium 2.2 mg/dL (1.6-2.6); Phosphorus 3.1 mg/dL (2.5-4.90); Total Protein 5.6 g/dL (6.4-8.2)
--- NOTE | 2019-10-19 08:31 | NUR ---
ASSESSMENT MARINA SALES AND SERVICE SUPERVISOR SPOKE WITH PT'S DAUGHTER PAWAN [phone] TO OBTAIN COLLATERAL INFORMATION FOR INITIAL ASSESSMENT. PT IS A 84 YR OLD MALE ADMITTED FOR ACUTE KIDNEY FAILURE, UTI. HE IS POST CABG, HX OF HEART DISEASE, PACEMAKER. PT RESIDES ALONE, WAS INDEPENDENT WITH ADL'S PRIOR TO ADMISSION, NO DME. PT'S PCP IS DR. REY. DAUGHTER STATES THAT PT WILL BE STAYING WITH HER IN [facility] POST DC, FAMILY IS AGREEABLE TO SNF PLACEMENT FOR PT IF NEEDED PRIOR TO HIM GOING HOME WITH THEM. PT HAS AN AHCD. PLAN IS FOR PT TO DC TO SNF. SS TO CONTINUE TO MONITOR PT FOR DC NEEDS. Addendum: 10/19/19 at 0849 by ANICETO YOUNG Amended: Links added.
[2019-10-19 09:25] VITALS: BP 114/58
[2019-10-19] MEDS: SODIUM CHLOR 0.9% PF (SALINE LOCK) 10ML VIAL/SYR IV SCH ×2 (10:58→21:47)
[2019-10-19] MEDS: AMIODARONE HCL 200 MG TAB PO SCH (11:06)
[2019-10-19] MEDS: METOPROLOL TARTRATE 50 MG TAB PO SCH ×2 (11:07→21:48)
--- NOTE | 2019-10-19 11:13 | NUR ---
Respiratory note: PATIENT ASSESSED FOR PRN MED-NEB AT THIS TIME. MED-NEB NOT INDICATED HE IS NO ACUTE RESPIRATORY DISTRESS. SPO2 96% 3LPM NASAL CANNULA
--- NOTE | 2019-10-19 11:36 | NUR ---
4th attempt made for PT eval. Pt continued to refuse. I attempted to explain to patient that he was being discharged from the PT caseload due to continued refusals and patient began yelling "Shut up, get the hell out of here."
[2019-10-19 12:01] LABS: Basophils # (auto) 0.1 10 ^3/uL (0-0.2); Basophils % (auto) 0.6 % (0.0-2.0); Eosinophils # (auto) 0.2 10 ^3/uL (0-0.8); Eosinophils % (auto) 1.8 % (0.0-7.0); Hematocrit 32.6 % (41.0-53.0); Hemoglobin 10.7 g/dL (13.5-17.5); Lymphocytes # (auto) 0.5 10 ^3/uL (0.4-5.4); Lymphocytes % (auto) 4.8 % (10.0-50.0); Mean Corpuscular Hemoglobin 30.1 pg (28.0-32.0); Mean Corpuscular Hgb Conc. 32.7 g/dL (32.0-36.0); Monocytes % (auto) 10.5 % (0.0-12.0); Neutrophils # (auto) 7.7 10 ^3/uL (1.6-8.6); Neutrophils % (auto) 82.3 % (37.0-80.0); Platelet Count (auto) 263 10^3/uL (140-450); Red Blood Cells 3.54 10^6/uL (4.5-5.90); Red Cell Distribution Width 14.9 % (11.8-14.3); White Blood Cell 9.4 10^3/uL (4.4-10.8)
[2019-10-19 13:15] VITALS: BP 127/59
--- NOTE | 2019-10-19 14:47 | NUR ---
Nutrition Followup Notes Wt: 87.6 kg Pt is with a Clear Liquid diet, appetite is fair aeb 50% x2 PO intake per RN doc. Pt is also with TPN running @ 76 ml/hr, providing 1850 kcals, 90g protein and 1490 NPCs. Pt with adequate energy intake from PN support as it meets 97-105% of est caloric needs. Protein intake from PN support is adequate as it meets 99-118% of est protein needs. Will continue to monitor PO status, skin status, pertinent labs and weight trends. Will f/u in 2-3 days. Est. Energy Needs BW 76 [id number] kcal (23-25 kcal/kg BW), Est. Protein Needs: 76-91 gms/day (1.0-1.2 gms/kg BW). Will continue to monitor and reassess prn. LABS: GLU 111 H, CA 7.4 L, ALB 1.5 L, BUN 24 H GI: Pt is with diarrhea and pain per RN doc. BS: 17 mod risk Refer to wound assessment report for full details. PES: Altered nutrition related lab values r.t current chronic medical condition aeb hypocalcemia, mod hypoalb Increased nutrient needs r.t current medical condition aeb pt`s NPO with PN support Comments 1) advance PN support to meet > 75% of needs 2) advance diet as medically feiasble 3) continue current plan of care
[2019-10-19 16:46] VITALS: BP 118/60
[2019-10-19] MEDS: D5W/LACTATED RINGERS 1,000 ML IV SCH (17:56)
[2019-10-19] MEDS: ALBUTEROL SULF 2.5 MG/0.5ML(0.5%) NEB SOLN NEB SCH ×2 (18:12→22:03)
--- NOTE | 2019-10-19 18:18 | NUR ---
AT BEDSIDE FOR MED BRADY LEIGH.
--- NOTE | 2019-10-19 19:10 | NUR ---
Opening Shift Note: Assumed care of patient. Pt is awake, alert, and oriented X 4. No S/S of respiratory distress noted. No pain, nausea, or vomiting reported. Bed in lowest locked position, side rails up x 2, call light within reach. Salgado is patent and below the bladder level. PICC line is patent and TPN running at 76 ml/h. Patient instructed on POC and to call for assistance PRN. Will continue to monitor for changes Q1hr and PRN.
[2019-10-19 20:00] VITALS: BP 119/63
[2019-10-19] MEDS ORDERED: TPN PER PHARMACY IV NR ×10 (20:00)
[2019-10-19] MEDS: PRAVASTATIN SODIUM 20 MG TAB PO SCH (21:48)
[2019-10-19 22:00] VITALS: BP 119/63
--- NOTE | 2019-10-19 22:05 | NUR ---
RT NOTE: BEDSIDE SPIROMETRY PERFORMED WITH PRE/POST BRONCHO. WILL PLACE RESULTS IN HARD CHART. PT TOLERATED WELL. CPT PERFORMED IN UPPER AND MIDDLE LOBES, PT TOLERATED WELL.
[2019-10-20] MEDS: ACCU-CHEK COMFORT CURVE STRIP VI SCH ×4 (00:01→18:00)
[2019-10-20] MEDS: PIPERACILLIN-TAZOB 3.375GM 100 ML IV SCH ×4 (00:02→18:00)
[2019-10-20] MEDS: ALBUTEROL SULF 2.5 MG/0.5ML(0.5%) NEB SOLN NEB SCH ×5 (03:00→18:00)
[2019-10-20 05:00] VITALS: BP 108/59
[2019-10-20] MEDS: InsuLIN REG 1unit/0.01ml Soln (100units/ml) SC SCH ×4 (05:58→18:00)
[2019-10-20] MEDS: COMBIVENT RESPIMAT PO PRN (06:09)
--- NOTE | 2019-10-20 07:12 | NUR ---
RT NOTE: PT REFUSED CPT AT THIS TIME. STATING HIS CHEST IS SORE FROM LAST SESSION. WILL CONTINUE TO MONITOR.
[2019-10-20] MEDS: LEVOTHYROXINE SODIUM 100 MCG TAB PO SCH (07:46)
[2019-10-20 07:50] LABS: Basophils # (auto) 0.1 10 ^3/uL (0-0.2); Basophils % (auto) 0.7 % (0.0-2.0); Eosinophils # (auto) 0.3 10 ^3/uL (0-0.8); Eosinophils % (auto) 2.7 % (0.0-7.0); Hematocrit 31.7 % (41.0-53.0); Hemoglobin 10.7 g/dL (13.5-17.5); Lymphocytes # (auto) 0.5 10 ^3/uL (0.4-5.4); Lymphocytes % (auto) 5.1 % (10.0-50.0); Mean Corpuscular Hemoglobin 30.3 pg (28.0-32.0); Mean Corpuscular Hgb Conc. 33.8 g/dL (32.0-36.0); Mean Corpuscular Volume 89.8 fL (80.0-100.0); Monocytes % (auto) 10.1 % (0.0-12.0); Neutrophils # (auto) 7.7 10 ^3/uL (1.6-8.6); Neutrophils % (auto) 81.4 % (37.0-80.0); Platelet Count (auto) 304 10^3/uL (140-450); Red Blood Cells 3.53 10^6/uL (4.5-5.90); Red Cell Distribution Width 14.5 % (11.8-14.3); White Blood Cell 9.5 10^3/uL (4.4-10.8)
[2019-10-20 09:00] VITALS: BP 113/61
[2019-10-20] MEDS: METOPROLOL TARTRATE 50 MG TAB PO SCH (09:42)
[2019-10-20] MEDS ORDERED: AMIODARONE HCL 200 MG TAB PO SCH (10:00)
[2019-10-20 10:34] LABS: Albumin 1.5 g/dL (3.4-5.0); BUN/Creatinine Ratio 30.1; Bilirubin, Total 0.3 mg/dL (0.2-1.0); Calcium 7.7 mg/dL (8.5-10.1); Magnesium 2.2 mg/dL (1.6-2.6); Phosphorus 2.8 mg/dL (2.5-4.90); Total Protein 5.5 g/dL (6.4-8.2)
[2019-10-20 13:00] VITALS: BP 103/54
[2019-10-20] MEDS: D5W/LACTATED RINGERS 1,000 ML IV SCH (13:45)
[2019-10-20] MEDS: BENZONATATE 100 MG PO PRN (14:33)
[2019-10-20] MEDS: SODIUM CHLOR 0.9% PF (SALINE LOCK) 10ML VIAL/SYR IV SCH (14:35)
--- NOTE | 2019-10-20 16:22 | NUR ---
Dr. Weathers Rounded Patient to continue warfarin on discharge.
[2019-10-20 16:46] VITALS: BP 103/54
[2019-10-20 17:00] VITALS: BP 98/48
--- NOTE | 2019-10-20 17:21 | NUR ---
D/C Planning Regarding social service consult for hospice evaluation. Patient daughter Brooklyn has requested [facility]. Per [place] patient will be staying with her in [facility]. Faxed clinical information to [facility]. Per Maddy with [facility] patient has been accepted and they will see patient upon d/c day. Transportation has been arranged with [facility] between 6-7pm. Nurse was informed.
--- NOTE | 2019-10-20 17:30 | NUR ---
Salgado Catheter Salgado Catheter discontinued and patient voided in urinal.
--- NOTE | 2019-10-20 18:30 | NUR ---
Home medications held in pharmacy returned to patient. Discharge papers given and tele monitor returned to ICU. PICC line left in place awaiting the arrival of transportation.
--- NOTE | 2019-10-20 19:08 | NUR ---
PT REFUSED NEB TX. PT STATED THAT HE IS BEING D/C'D AND JUST WAITING FOR THE TRANSPORT TEAM TO ARRIVE. NO VISIBLE RESP DISTRESS NOTED.
== END 2019-10-20 20:05 | disposition hospice, home (50) | DRG 698 ==
LOC: ER 14:43 → EDBD 14:43 → WEST WING 14:44 → TELE-WESTW 10-14 01:53
PROVIDERS: ADMIT Hospitalist; ATTEND Hospitalist
PROC: 02HV33Z Insertion of Infusion Device into Superior Vena Cava, Percutaneous Approach (ICD-10-PCS; principal; 2019-10-12)
PROC: 0DBK8ZZ Excision of Ascending Colon, Via Natural or Artificial Opening Endoscopic (ICD-10-PCS; 2019-10-18)
DX: N32.1 Vesicointestinal fistula (principal); N17.0 Acute kidney failure with tubular necrosis; I50.43 Acute on chronic combined systolic (congestive) and diastolic (congestive) heart failure; E87.1 Hypo-osmolality and hyponatremia; N39.0 Urinary tract infection, site not specified; D68.4 Acquired coagulation factor deficiency; I48.19 Other persistent atrial fibrillation; I13.0 Hypertensive heart and chronic kidney disease with heart failure and stage 1 through stage 4 chronic kidney disease, or unspecified chronic kidney disease; I47.2 Ventricular tachycardia; I42.0 Dilated cardiomyopathy; J96.11 Chronic respiratory failure with hypoxia; E44.0 Moderate protein-calorie malnutrition; K63.5 Polyp of colon; I95.0 Idiopathic hypotension; N13.9 Obstructive and reflux uropathy, unspecified; R32 Unspecified urinary incontinence; Z95.810 Presence of automatic (implantable) cardiac defibrillator; Z87.891 Personal history of nicotine dependence; E03.9 Hypothyroidism, unspecified; K40.90 Unilateral inguinal hernia, without obstruction or gangrene, not specified as recurrent; I71.4 Abdominal aortic aneurysm, without rupture; E78.5 Hyperlipidemia, unspecified; F41.9 Anxiety disorder, unspecified; K57.30 Diverticulosis of large intestine without perforation or abscess without bleeding; J44.9 Chronic obstructive pulmonary disease, unspecified; N18.2 Chronic kidney disease, stage 2 (mild); N32.3 Diverticulum of bladder; I25.10 Atherosclerotic heart disease of native coronary artery without angina pectoris; N40.1 Benign prostatic hyperplasia with lower urinary tract symptoms; Z95.1 Presence of aortocoronary bypass graft; N28.1 Cyst of kidney, acquired; Z87.440 Personal history of urinary (tract) infections; E11.22 Type 2 diabetes mellitus with diabetic chronic kidney disease; F41.0 Panic disorder [episodic paroxysmal anxiety]; Z79.01 Long term (current) use of anticoagulants; Z79.899 Other long term (current) drug therapy; Z82.49 Family history of ischemic heart disease and other diseases of the circulatory system; Z87.01 Personal history of pneumonia (recurrent); Z87.19 Personal history of other diseases of the digestive system; Z95.5 Presence of coronary angioplasty implant and graft; Z99.81 Dependence on supplemental oxygen; Z68.25 Body mass index [BMI] 25.0-25.9, adult; Z03.818 Encounter for observation for suspected exposure to other biological agents ruled out
CPT/HCPCS: 36415; 36569; 36600; 71045; 74176; 74430; 80053; 80162; 81001; 82040; 82805; 82962; 83605; 83735; 83880; 84100; 84132; 84154; 84443; 84478; 84484; 85025; 85610; 85730; 86850; 86900; 86901; 87040; 87086; 93306; 94640; 94668; G0378; J0696; J1815; J2250; J2405; J2543; J3430; J3480; J7131